=== PATIENT | male | born 1940 | race African-American/Black ===

== ENCOUNTER 2020-04-22 22:11 | Emergency (ER) | payer OTHER ==
[2020-04-22 22:42] LABS: Protime INR 1.05
[2020-04-22 23:02] LABS: ALT/SGPT 40 U/L (12-78); AST/SGOT 26 U/L (15-37); Albumin 3.5 g/dL (3.4-5.0); Alkaline Phosphatase 104 U/L (45-117); BUN Blood Urea Nitrogen 15 mg/dL (7-18); Bicarbonate 27 mmol/L (21-32); Bilirubin Direct < 0.1 mg/dL (0-0.2); Bilirubin Total 0.4 mg/dL (0.2-1.0); Glucose Level 122 mg/dL (74-106); Magnesium 2.4 mg/dL (1.8-2.4); NT PRO-BNP 240 pg/mL (<450); Potassium 3.5 mmol/L (3.5-5.1); Protein, Total 7.7 g/dL (6.4-8.2); Sodium Level 142 mmol/L (136-145); Troponin (Emerg Dept Use Only) 0.02 ng/mL (0.0-0.045)
[2020-04-22] MEDS ORDERED: NA CHLORIDE 0.9% 500 ML ONE (23:16)
[2020-04-22] MEDS ORDERED: HYDRALAZINE HCL 20 MG/ML VIAL ONE (23:16)
[2020-04-22 23:58] LABS: Absolute Lymphocytes (CBC) 1.4 K/uL (0.7-4.9); Basophils % 0.4 % (0-1.3); Hematocrit 45.7 % (39.6-49.0); Lymphocytes % 16.4 % (15.3-44.8); MPV 9.6 fL (7.6-11.3); RBC Red Blood Cell Count 5.51 M/uL (4.33-5.43)
[2020-04-23] MEDS ORDERED: lisinopriL 20 MG TAB ONE (00:04)
[2020-04-23 00:56] LABS: Urine Blood TRACE (NEG); Urine Glucose NEGATIVE (NEG); Urine Protein 2+ (NEG)
[2020-04-23 00:57] LABS: Urine Bacteria <20 /HPF (NONE SEEN)
[2020-04-23] MEDS ORDERED: METOPROLOL TAR 25 MG TAB ONE (01:13)
[2020-04-23] MEDS ORDERED: ASPIRIN 81 MG CHEWABLE TABLET ONE (01:13)
[2020-04-23] MEDS ORDERED: METOPROLOL TARTRATE 5 MG/5 ML INJ IV ONE (01:13)
--- NOTE | 2020-04-23 01:31 | ER ---
Nurse's Notes [facility] Name: Dimitrios Madera Age: 79 yrs Sex: Male : 1940 Arrival Date: 04/22/2020 Time: 22:19 Bed 8 Private MD: Diagnosis: Weakness-Right Arm and Right Leg;Hypertensive heart disease Presentation: 04/22 22:20 Chief complaint: EMS states: HE WAS WORKING OUTSIDE, HURT HIS FOOT WHEN HE STEPPED ON rv HIS TOOL. WENT INSIDE, FELL, NO HEAD TRAUMA, BLOOD PRESSURE IS ELEVATED. BGL IS NORMAL. Coronavirus screen: Client denies travel out of the [place] in the last 14 days. Ebola Screen: No symptoms or risks identified at this time. No acute neurological deficit is noted. The patients blood glucose was checked before arriving to the hospital and was found to be normal. Initial Sepsis Screen: Does the patient meet any 2 criteria? No. Patient's initial sepsis screen is negative. Does the patient have a suspected source of infection? No. Patient's initial sepsis screen is negative. Risk Assessment: Do you want to hurt yourself or someone else? Patient reports no desire to harm self or others. Onset of symptoms was April 22, 2020. 22:20 Method Of Arrival: EMS: [facility] 22:20 Acuity: TRIPP 3 rv Triage Assessment: 22:23 The onset of the patients symptoms was less than three hours ago. The onset of the rv patients symptoms was April 22, 2020 at 19:30. General: Appears comfortable, Behavior is calm, cooperative. Pain: Denies pain. EENT: No signs and/or symptoms were reported regarding the EENT system. Neuro: Level of Consciousness is awake, alert, obeys commands, Oriented to person, place, time, situation, Reports weakness. Cardiovascular: Patient's skin is warm and dry. Rhythm is sinus tachycardia. Respiratory: Airway is patent Respiratory effort is even, unlabored, Breath sounds are clear bilaterally. Derm: Skin is intact. Historical: - Allergies: 22:23 No Known Allergies; rv - Home Meds: 22:23 None [Active]; rv - PMHx: 22:23 None; rv - PSHx: 22:23 None; rv - Immunization history:: Adult Immunizations up to date. - Social history:: Smoking status: Patient denies any tobacco usage or history of. Screenin:25 Abuse screen: Denies threats or abuse. Denies injuries from another. Nutritional rv screening: No deficits noted. Tuberculosis screening: No symptoms or risk factors identified. VAN Screening: Arm Drift: Patient shows no arm weakness. Patient is VAN negative. Fall Risk Fall in past 12 months (25 points). No secondary diagnosis (0 pts). No IV (0 pts). Ambulatory Aid- None/Bed Rest/Nurse Assist (0 pts). Gait- Weak (10 pts.). Mental Status- Oriented to own ability (0 pts). Total Montelongo Fall Scale indicates No Risk (0-24 pts). Assessment: 22:45 Reassessment: PATIENT IS BACK FROM CT SCAN. rv 04/23 01:30 Reassessment: patient's blood pressure decreased after doses of blood pressure rv medications, assisted the patient on standing up on the bed, noted the right leg and right arm to be weak, alert and oriented, referred to Jass Martin, CT scan done immediately, Dr Rainey talked to the family and patient, family and patient consented on TPA. Neuro: Level of Consciousness is awake, alert, obeys commands, Oriented to person, place, time, situation. 03:30 Reassessment: while administering the TPA, patient's vital signs dropped, became rv hypotensive, and patient suddenly unresponsive, with pulse, complete right sided weakness, absence of movement noted, blood sugar checked-115, hooked to oxygen via nasal cannula at 2 lpm, Dr Rainey at bedside, suctioning done, noted patient's gag reflex is present, given bolus of NS thru IV, blood pressure started to increase, CT scan done and negative for bleeding. family updated on the plan of care, life flight at bedside. patient is stuporous upon transfer. Neuro: Level of Consciousness is stuporous, Paralysis in right arm(s) leg(s). Vital Signs: 04/22 22:20 BP 221 / 103; Pulse 111; Resp 14; Temp 98.3; Pulse Ox 97% on R/A; Weight 90.72 kg; rv Height 6 ft. 0 in. (182.88 cm); 23:51 BP 183 / 104; Pulse 115; Resp 19; Pulse Ox 99% ; rr5 04/23 00:15 BP 198 / 104; Pulse 111; Resp 14; Pulse Ox 100% on R/A; rv 01:00 BP 197 / 108; Pulse 109; Resp 16; Pulse Ox 100% on R/A; rv 01:26 BP 173 / 100; Pulse 92; Resp 14; Pulse Ox 99% on R/A; rv 02:20 BP 163 / 83; Pulse 91; Resp 15; Pulse Ox 100% on R/A; rv 02:30 BP 142 / 74; Pulse 89; Resp 17; Pulse Ox 100% on R/A; rv 02:45 BP 143 / 69; Pulse 84; Resp 15; Pulse Ox 100% on R/A; rv 03:00 BP 144 / 71; Pulse 96; Resp 15; Pulse Ox 99% on R/A; rv 03:15 BP 38 / 24; Pulse 56; Resp 25; Pulse Ox 100% ; rv 03:18 BP 71 / 48; Pulse 79; Resp 20; Pulse Ox 99% on 2 lpm NC; rv 03:26 BP 108 / 42; Pulse 89; Resp 19; Pulse Ox 100% on 2 lpm NC; rv 03:30 BP 121 / 74; Pulse 83; Resp 19; Pulse Ox 100% on 2 lpm NC; rv 04/22 22:20 Body Mass Index 27.12 (90.72 kg, 182.88 cm) rv NIH Stroke Scale Scores: 04/22 22:55 NIHSS Score: 0 cp 04/23 02:00 NIHSS Score: 4 rv 02:07 NIHSS Score: 5 cp ED Course: 04/22 22:19 Patient arrived in ED. cl3 22:20 Jeancarlos Mooney, ANGELICA is Primary Nurse. rv 22:22 Triage completed. rv 22:25 Arm band placed on right wrist. Patient placed in the treatment room, on a stretcher, rv Patient notified of wait time. 22:25 Maintain EMS IV. Dressing intact. Good blood return noted. Site clean \T\ dry. Gauge \T\ rv site: G20 LFA. 22:26 Patient has correct armband on for positive identification. Bed in low position. Call rv light in reach. Side rails up X 1. database coordinator on. Pulse ox on. NIBP on. 22:28 Jass Martin PA is PHCP. cp 22:28 Jass Rainey MD is Attending Physician. cp 22:44 XRAY Chest (1 view) In Process Unspecified. EDMS 22:48 CT Head Brain wo Cont In Process Unspecified. EDMS 04/23 02:06 initiated a transfer with Kenna Figueroa from [facility]. mw2 02:07 CT Head Brain wo Cont: right arm and right leg weakness In Process Unspecified. EDMS 02:16 administrative approval given by Kenna Figueroa/ patient has been accepted to [facility] mw2 bed [id number]/Dr. Branch has accepted the patient in transfer/ report to be called to [phone]. 02:20 Inserted saline lock: 18 gauge in right wrist, using aseptic technique. rr5 03:45 CT Head Brain wo Cont In Process Unspecified. EDMS 04:24 No provider procedures requiring assistance completed. IV is patent, with fluids rv infusing freely, Patient transferred, IV remains in place. Administered Medications: 04/22 23:11 Drug: NS 0.9% 250 ml Route: IV; Rate: calculated rate; Site: left forearm; rv 23:11 Drug: hydrALAZINE 10 mg Route: IV; Rate: calculated rate; Site: left forearm; rv 04/23 04:24 Follow up: Response: Blood pressure is lowered rv 04/22 23:51 Drug: Lisinopril 20 mg Route: PO; rr5 04/23 04:23 Follow up: Response: Blood pressure is lowered rv 04:24 Follow up: Response: No adverse reaction rv 00:28 Drug: NS 0.9% 250 ml Route: IV; Rate: bolus; Site: left forearm; rr5 04:23 Follow up: IV Status: Completed infusion; IV Intake: 250ml rv 01:03 Drug: Lopressor 5 mg Route: IVP; Site: left forearm; rv 04:23 Follow up: Response: Blood pressure is lowered rv 01:03 Drug: Metoprolol 25 mg Route: PO; rv 04:23 Follow up: Response: Blood pressure is lowered rv 01:03 Drug: Aspirin Chewable Tablet 81 mg Route: PO; rv 04:23 Follow up: Response: No adverse reaction rv 02:17 Drug: NS 0.9% 500 ml Route: IV; Rate: bolus; Site: left wrist; rv 04:22 Follow up: IV Status: Completed infusion rv 02:18 Drug: foLIC Acid 1 mg Route: IVPB; Site: left wrist; rv 04:22 Follow up: IV Status: Completed infusion rv 02:18 Drug: Pepcid 20 mg Route: IVP; Site: left wrist; rv 04:22 Follow up: Response: No adverse reaction rv 02:30 Drug: ACTIvase {Co-Signature: rr5 (Corky James RN).} Route: IV Thrombolytics; Rate: rv calculated rate; Infused Over: 60 mins; 04:22 Follow up: Response: No adverse reaction rv 03:10 Drug: Zofran (Ondansetron) 4 mg Route: IVP; Site: right antecubital; sg 04:22 Follow up: Response: No adverse reaction rv Intake: 04:23 IV: 250ml; Total: 250ml. rv Outcome: 01:30 Discharge ordered by . cp 02:30 ER care complete, transfer ordered by MD. cp 04:[address] [facility], Transfer form completed. rv X-rays sent w/ patient. 04:29 Condition: deteriorated 04:29 Instructed on the need for transfer. 04:29 Patient left the ED. rv NIH Stroke Scale - NIH Stroke Score Date: 04/22/2020 Time: 22:55 Total Score = 0 1a. Level of Consciousness (LOC) - 0(Alert) 1b. Level of Consciousness (LOC) (Year \T\ Age) - 0(Both) 1c. LOC Commands (Open \T\ Closes Eyes/Underwater Trapper) - 0(Both) 2. Best Gaze (Lateral Gaze Paresis) - 0(Normal) 3. Visual Field Loss - 0(No visual loss) 4. Facial Palsy - 0(Normal) 5a. Left Arm: Motor (10-second hold) - 0(No drift) 5b. Right Arm: Motor (10-second hold) - 0(No drift) 6a. Left Leg: Motor (5-second hold - always test supine) - 0(No drift) 6b. Right Leg: Motor (5-second hold - always test supine) - 0(No drift) 7. Limb Ataxia (finger/nose \T\ heel/pa - test with eyes open) - 0(Absent) 8. Sensory Loss (pinprick arms/legs/face) - 0(Normal) 9. Best Language: Aphasia (description/naming/reading) - 0(No aphasia) 10. Dysarthria (speech clarity - read or repeat words) - 0(Normal) 11. Extinction and Inattention (visual/tactile/auditory/spatial/personal) - 0(No abnormality) Initials: cp NIH Stroke Scale - NIH Stroke Score Date: 04/23/2020 Time: 02:00 Total Score = 4 1a. Level of Consciousness (LOC) - 0(Alert) 1b. Level of Consciousness (LOC) (Year \T\ Age) - 0(Both) 1c. LOC Commands (Open \T\ Closes Eyes/Underwater Trapper) - 0(Both) 2. Best Gaze (Lateral Gaze Paresis) - 0(Normal) 3. Visual Field Loss - 0(No visual loss) 4. Facial Palsy - 0(Normal) 5a. Left Arm: Motor (10-second hold) - 0(No drift) 5b. Right Arm: Motor (10-second hold) - 1(Drift) 6a. Left Leg: Motor (5-second hold - always test supine) - 0(No drift) 6b. Right Leg: Motor (5-second hold - always test supine) - 2(Drift, some effort against gravity) 7. Limb Ataxia (finger/nose \T\ heel/pa - test with eyes open) - 1(Present in one limb) 8. Sensory Loss (pinprick arms/legs/face) - 0(Normal) 9. Best Language: Aphasia (description/naming/reading) - 0(No aphasia) 10. Dysarthria (speech clarity - read or repeat words) - 0(Normal) 11. Extinction and Inattention (visual/tactile/auditory/spatial/personal) - 0(No abnormality) Initials: rv NIH Stroke Scale - NIH Stroke Score Date: 04/23/2020 Time: 02:07 Total Score = 5 1a. Level of Consciousness (LOC) - 0(Alert) 1b. Level of Consciousness (LOC) (Year \T\ Age) - 0(Both) 1c. LOC Commands (Open \T\ Closes Eyes/Underwater Trapper) - 0(Both) 2. Best Gaze (Lateral Gaze Paresis) - 0(Normal) 3. Visual Field Loss - 0(No visual loss) 4. Facial Palsy - 0(Normal) 5a. Left Arm: Motor (10-second hold) - 0(No drift) 5b. Right Arm: Motor (10-second hold) - 1(Drift) 6a. Left Leg: Motor (5-second hold - always test supine) - 0(No drift) 6b. Right Leg: Motor (5-second hold - always test supine) - 1(Drift) 7. Limb Ataxia (finger/nose \T\ heel/pa - test with eyes open) - 2(Present in two limbs) 8. Sensory Loss (pinprick arms/legs/face) - 0(Normal) 9. Best Language: Aphasia (description/naming/reading) - 0(No aphasia) 10. Dysarthria (speech clarity - read or repeat words) - 1(Mild to Moderate) 11. Extinction and Inattention (visual/tactile/auditory/spatial/personal) - 0(No abnormality) Initials: cp Signatures: Dispatcher [employer] EDCarlton Garcia RN RN sg Jass Martin PA PA cp Clyde Rose mw2 Jeancarlos Mooney RN RN Corky Hopson RN RN rr5 Musa Viera cl3 Corky James RN rr5 Corrections: (The following items were deleted from the chart) 03:50 02:20 Inserted saline lock: 20 gauge in right wrist, using aseptic technique. rr5 rr5 04:02 03:58 Reassessment: rv steven 04:22 01:00 Reassessment: Reassessment: rv rv
--- NOTE | 2020-04-23 01:31 | EDPHYS ---
Physician Documentation [facility] Name: Dimitrios Madera Age: 79 yrs Sex: Male : 1940 Arrival Date: 04/22/2020 Time: 22:19 Bed 8 Private MD: ED Physician Jass Rainey HPI: 04/22 22:45 This 79 yrs old Black Male presents to ER via EMS with complaints of Weakness. cp 22:45 The patient presents to the emergency department with weakness of the entire body, cp generalized weakness. 22:45 Onset: The symptoms/episode began/occurred today. Context: occurred at home, after cp fall, patient was unable to get up from ground. Patient's baseline: Neuro: alert and fully oriented, Motor: no deficits, Ambulation: walks without assistance, Speech: normal. Current symptoms: general weakness. 22:45 reports patient fell at home and was unable to get up from floor. cp Historical: - Allergies: 22:23 No Known Allergies; rv - Home Meds: 22:23 None [Active]; rv - PMHx: 22:23 None; rv - PSHx: 22:23 None; rv - Immunization history:: Adult Immunizations up to date. - Social history:: Smoking status: Patient denies any tobacco usage or history of. ROS: 22:50 Constitutional: Negative for body aches, chills, fever, poor PO intake. cp 22:50 Cardiovascular: Negative for chest pain, palpitations. cp 22:50 Respiratory: Negative for cough, shortness of breath, wheezing. 22:50 Abdomen/GI: Negative for abdominal pain, nausea, vomiting, and diarrhea. 22:50 Eyes: Negative for injury, pain, redness, and discharge. cp 22:50 ENT: Negative for ear pain, sore throat, difficulty swallowing, difficulty handling secretions. 22:50 Skin: Negative for rash. 22:50 Neuro: Positive for weakness, Negative for altered mental status, dizziness, headache, numbness, syncope. 22:50 All other systems are negative. Exam: 22:20 ECG was reviewed by the Attending Physician. cp 22:55 Head/Face: Normocephalic, atraumatic. cp 22:55 Constitutional: The patient appears in no acute distress, alert, awake, non-diaphoretic, non-toxic, well developed, well nourished. 22:55 Eyes: Periorbital structures: appear normal, Conjunctiva: normal, no exudate, no injection, Sclera: no appreciated abnormality, Lids and lashes: appear normal, bilaterally. 22:55 ENT: External ear(s): are unremarkable, Nose: is normal, Mouth: Lips: moist, Oral mucosa: moist, Posterior pharynx: Airway: no evidence of obstruction, patent. 22:55 Neck: ROM/movement: is normal, is supple, without pain, no range of motions limitations. 22:55 Chest/axilla: Inspection: normal, Palpation: is normal, no crepitus, no tenderness. 22:55 Cardiovascular: Rate: tachycardic, Rhythm: regular, Edema: is not appreciated, JVD: is not appreciated. 22:55 Respiratory: the patient does not display signs of respiratory distress, Respirations: normal, no use of accessory muscles, no retractions, labored breathing, is not present, Breath sounds: are clear throughout, no decreased breath sounds, no stridor, no wheezing. 22:55 Abdomen/GI: Inspection: abdomen appears normal, Bowel sounds: active, all quadrants, Palpation: abdomen is soft and non-tender, in all quadrants. 22:55 Back: pain, is absent, ROM is normal. 22:55 Skin: no rash present. 22:55 Neuro: Orientation: to person, place \T\ time. Mentation: is normal, Cerebellar function: Romberg testing is negative, Motor: moves all fours, strength is normal, Sensation: is normal. 04/23 00:47 ECG was reviewed by the Attending Physician. cp Vital Signs: 04/22 22:20 BP 221 / 103; Pulse 111; Resp 14; Temp 98.3; Pulse Ox 97% on R/A; Weight 90.72 kg; rv Height 6 ft. 0 in. (182.88 cm); 23:51 BP 183 / 104; Pulse 115; Resp 19; Pulse Ox 99% ; rr5 04/23 00:15 BP 198 / 104; Pulse 111; Resp 14; Pulse Ox 100% on R/A; rv 01:00 BP 197 / 108; Pulse 109; Resp 16; Pulse Ox 100% on R/A; rv 01:26 BP 173 / 100; Pulse 92; Resp 14; Pulse Ox 99% on R/A; rv 02:20 BP 163 / 83; Pulse 91; Resp 15; Pulse Ox 100% on R/A; rv 02:30 BP 142 / 74; Pulse 89; Resp 17; Pulse Ox 100% on R/A; rv 02:45 BP 143 / 69; Pulse 84; Resp 15; Pulse Ox 100% on R/A; rv 03:00 BP 144 / 71; Pulse 96; Resp 15; Pulse Ox 99% on R/A; rv 03:15 BP 38 / 24; Pulse 56; Resp 25; Pulse Ox 100% ; rv 03:18 BP 71 / 48; Pulse 79; Resp 20; Pulse Ox 99% on 2 lpm NC; rv 03:26 BP 108 / 42; Pulse 89; Resp 19; Pulse Ox 100% on 2 lpm NC; rv 03:30 BP 121 / 74; Pulse 83; Resp 19; Pulse Ox 100% on 2 lpm NC; rv 04/22 22:20 Body Mass Index 27.12 (90.72 kg, 182.88 cm) rv NIH Stroke Scale Scores: 04/22 22:55 NIHSS Score: 0 cp 04/23 02:00 NIHSS Score: 4 rv 02:07 NIHSS Score: 5 cp MDM: 04/22 22:33 Patient medically screened. [facility] 04/23 02:10 Physician consultation: Jas Shelton MD was called at 02:10, was contacted at 02:10, helio regarding consult, patient's condition, recommends administering tpa. 02:31 Data reviewed: vital signs, nurses notes, lab test result(s), EKG, radiologic studies, cp CT scan, plain films, I have discussed the patient's presentation/case with the attending Emergency Department Physician;. Counseling: I had a detailed discussion with the patient and/or guardian regarding: the historical points, exam findings, and any diagnostic results supporting the discharge/admit diagnosis, the presence of at least one elevated blood pressure reading (>120/80) during this emergency department visit, lab results, the need to transfer to another facility, for higher level of care. 04/22 22:26 Order name: Basic Metabolic Panel; Complete Time: 23:45 rv 04/22 23:46 Interpretation: Normal except: GLUC 122; CRE 1.31; GFR 64. cp 04/22 22:26 Order name: CBC with Diff; Complete Time: 00:14 rv 04/23 00:15 Interpretation: Normal except: RBC 5.51; MCH 26.7; ALFRED% 76.6. 04/22 22:26 Order name: LFT's; Complete Time: 23:45 04/22 23:46 Interpretation: Normal except: GLOB 4.2; A/G 0.8. 04/22 22:26 Order name: Magnesium; Complete Time: 23:45 rv 04/22 22:26 Order name: NT PRO-BNP; Complete Time: 23:45 04/22 22:26 Order name: PT-INR; Complete Time: 23:45 rv 04/22 22:26 Order name: Troponin (emerg Dept Use Only); Complete Time: 23:45 04/22 23:46 Interpretation: Reviewed. 04/22 22:26 Order name: XRAY Chest (1 view) 04/22 22:32 Order name: Glucose, Ancillary Testing; Complete Time: 22:35 ED[facility] 04/22 22:37 Order name: Urine Microscopic Only 04/22 22:37 Order name: CT Head Brain wo Cont 04/22 22:38 Order name: Urine Microscopic Only; Complete Time: 01:45 ED[facility] 04/22 23:52 Order name: Urine Dipstick--Ancillary (enter results); Complete Time: 01:45 04/23 03:38 Order name: Glucose, Ancillary Testing ED[facility] 04/22 22:26 Order name: EKG; Complete Time: 22:27 04/22 22:26 Order name: Cardiac monitoring; Complete Time: 22:26 04/23 01:47 Order name: CT Head Brain wo Cont: right arm and right leg weakness 04/23 03:20 Order name: CT Head Brain wo Cont rr5 04/22 22:26 Order name: EKG - Nurse/Tech; Complete Time: 22:27 04/22 22:26 Order name: IV Saline Lock; Complete Time: 22:27 04/22 22:26 Order name: Labs collected and sent; Complete Time: 22:27 04/22 22:26 Order name: O2 Per Protocol; Complete Time: 22:27 04/22 22:26 Order name: O2 Sat Monitoring; Complete Time: 22:27 04/22 22:37 Order name: Urine Dipstick-Ancillary (obtain specimen); Complete Time: 01:22 EC/28 22:20 Rate is 99 beats/min. Rhythm is regular. MA interval is normal. QRS interval is normal. cp QT interval is normal. Interpreted by me. Reviewed by me. 04/23 00:47 Rate is 110 beats/min. Rhythm is regular. MA interval is normal. QRS interval is cp normal. QT interval is normal. Interpreted by me. Reviewed by me. Administered Medications: 04/22 23:11 Drug: NS 0.9% 250 ml Route: IV; Rate: calculated rate; Site: left forearm; rv 23:11 Drug: hydrALAZINE 10 mg Route: IV; Rate: calculated rate; Site: left forearm; rv 04/23 04:24 Follow up: Response: Blood pressure is lowered rv 04/22 23:51 Drug: Lisinopril 20 mg Route: PO; rr5 04/23 04:23 Follow up: Response: Blood pressure is lowered rv 04:24 Follow up: Response: No adverse reaction rv 00:28 Drug: NS 0.9% 250 ml Route: IV; Rate: bolus; Site: left forearm; rr5 04:23 Follow up: IV Status: Completed infusion; IV Intake: 250ml rv 01:03 Drug: Lopressor 5 mg Route: IVP; Site: left forearm; rv 04:23 Follow up: Response: Blood pressure is lowered rv 01:03 Drug: Metoprolol 25 mg Route: PO; rv 04:23 Follow up: Response: Blood pressure is lowered rv 01:03 Drug: Aspirin Chewable Tablet 81 mg Route: PO; rv 04:23 Follow up: Response: No adverse reaction rv 02:17 Drug: NS 0.9% 500 ml Route: IV; Rate: bolus; Site: left wrist; rv 04:22 Follow up: IV Status: Completed infusion rv 02:18 Drug: foLIC Acid 1 mg Route: IVPB; Site: left wrist; rv 04:22 Follow up: IV Status: Completed infusion rv 02:18 Drug: Pepcid 20 mg Route: IVP; Site: left wrist; rv 04:22 Follow up: Response: No adverse reaction rv 02:30 Drug: ACTIvase {Co-Signature: rr5 (Corky James RN).} Route: IV Thrombolytics; Rate: rv calculated rate; Infused Over: 60 mins; 04:22 Follow up: Response: No adverse reaction rv 03:10 Drug: Zofran (Ondansetron) 4 mg Route: IVP; Site: right antecubital; sg 04:22 Follow up: Response: No adverse reaction rv Disposition: 07:24 Co-signature as Attending Physician, Jass Rainey MD I agree with the assessment and lora plan of care. Disposition: 04/23/20 02:30 Transfer ordered to [facility]. Diagnosis are Weakness - Right Arm and Right Leg, Hypertensive heart disease. - Reason for transfer: Higher level of care. - Accepting physician is DR Branch. - Condition is Stable. - Problem is new. - Symptoms are unchanged. NIH Stroke Scale - NIH Stroke Score Date: 04/22/2020 Time: 22:55 Total Score = 0 1a. Level of Consciousness (LOC) - 0(Alert) 1b. Level of Consciousness (LOC) (Year \T\ Age) - 0(Both) 1c. LOC Commands (Open \T\ Closes Eyes/Mine Car Dispatcher) - 0(Both) 2. Best Gaze (Lateral Gaze Paresis) - 0(Normal) 3. Visual Field Loss - 0(No visual loss) 4. Facial Palsy - 0(Normal) 5a. Left Arm: Motor (10-second hold) - 0(No drift) 5b. Right Arm: Motor (10-second hold) - 0(No drift) 6a. Left Leg: Motor (5-second hold - always test supine) - 0(No drift) 6b. Right Leg: Motor (5-second hold - always test supine) - 0(No drift) 7. Limb Ataxia (finger/nose \T\ heel/pa - test with eyes open) - 0(Absent) 8. Sensory Loss (pinprick arms/legs/face) - 0(Normal) 9. Best Language: Aphasia (description/naming/reading) - 0(No aphasia) 10. Dysarthria (speech clarity - read or repeat words) - 0(Normal) 11. Extinction and Inattention (visual/tactile/auditory/spatial/personal) - 0(No abnormality) Initials: cp NIH Stroke Scale - NIH Stroke Score Date: 04/23/2020 Time: 02:00 Total Score = 4 1a. Level of Consciousness (LOC) - 0(Alert) 1b. Level of Consciousness (LOC) (Year \T\ Age) - 0(Both) 1c. LOC Commands (Open \T\ Closes Eyes/Mine Car Dispatcher) - 0(Both) 2. Best Gaze (Lateral Gaze Paresis) - 0(Normal) 3. Visual Field Loss - 0(No visual loss) 4. Facial Palsy - 0(Normal) 5a. Left Arm: Motor (10-second hold) - 0(No drift) 5b. Right Arm: Motor (10-second hold) - 1(Drift) 6a. Left Leg: Motor (5-second hold - always test supine) - 0(No drift) 6b. Right Leg: Motor (5-second hold - always test supine) - 2(Drift, some effort against gravity) 7. Limb Ataxia (finger/nose \T\ heel/pa - test with eyes open) - 1(Present in one limb) 8. Sensory Loss (pinprick arms/legs/face) - 0(Normal) 9. Best Language: Aphasia (description/naming/reading) - 0(No aphasia) 10. Dysarthria (speech clarity - read or repeat words) - 0(Normal) 11. Extinction and Inattention (visual/tactile/auditory/spatial/personal) - 0(No abnormality) Initials: rv NIH Stroke Scale - NIH Stroke Score Date: 04/23/2020 Time: 02:07 Total Score = 5 1a. Level of Consciousness (LOC) - 0(Alert) 1b. Level of Consciousness (LOC) (Year \T\ Age) - 0(Both) 1c. LOC Commands (Open \T\ Closes Eyes/Mine Car Dispatcher) - 0(Both) 2. Best Gaze (Lateral Gaze Paresis) - 0(Normal) 3. Visual Field Loss - 0(No visual loss) 4. Facial Palsy - 0(Normal) 5a. Left Arm: Motor (10-second hold) - 0(No drift) 5b. Right Arm: Motor (10-second hold) - 1(Drift) 6a. Left Leg: Motor (5-second hold - always test supine) - 0(No drift) 6b. Right Leg: Motor (5-second hold - always test supine) - 1(Drift) 7. Limb Ataxia (finger/nose \T\ heel/pa - test with eyes open) - 2(Present in two limbs) 8. Sensory Loss (pinprick arms/legs/face) - 0(Normal) 9. Best Language: Aphasia (description/naming/reading) - 0(No aphasia) 10. Dysarthria (speech clarity - read or repeat words) - 1(Mild to Moderate) 11. Extinction and Inattention (visual/tactile/auditory/spatial/personal) - 0(No abnormality) Initials: cp Signatures: Dispatcher [employer] EDMS Carlton Flores RN RN sg Anderson, Corey, MD MD cha Page, Corey, Jeancarlos Scott cp, RN RN rv Roque, Raymond, RN RN rr5 Corky James RN rr5 Corrections: (The following items were deleted from the chart) 00:17 04/22 22:30 This 79 yrs old Black Male presents to ER via EMS with complaints cp of Weakness. cp 04/23 02:01 01:30 04/23/2020 01:30 Discharged to Home. Impression: Hypertensive heart cp disease. Condition is Stable. Discharge Instructions: Hypertension, Managing Your Hypertension. Prescriptions for Metoprolol Tartrate 25 mg Oral Tablet - take 1 tablet by ORAL route 2 times per day with a meal; 60 tablet, Lisinopril 20 mg Oral Tablet - take 1 tablet by ORAL route once daily; 30 tablet. and Forms are Medication Reconciliation Form, Thank You Letter, Antibiotic Education, Prescription Opioid Use. Follow up: Private Physician; When: 2 - 3 days; Reason: Recheck today's complaints. Problem is new. Symptoms have improved. cp 04/22 22:22 Constitutional: The patient appears in no acute distress, alert, cp awake, non-diaphoretic, non-toxic, well developed, well nourished, cp 04/23 02:04/22 22:22 Head/Face: Normocephalic, atraumatic. cp cp 04/23 02:04/22 22:22 Eyes: Periorbital structures: appear normal, Conjunctiva: normal, cp no exudate, no injection, Sclera: no appreciated abnormality, Lids and lashes: appear normal, bilaterally, cp 04/23 02:04/22 22:22 ENT: External ear(s): are unremarkable, Nose: is normal, Mouth: cp Lips: moist, Oral mucosa: moist, Posterior pharynx: Airway: no evidence of obstruction, patent, cp 04/23 02:04/22 22:22 Neck: ROM/movement: is normal, is supple, without pain, no range of cp motions limitations, cp 04/23 02:04/22 22:22 Chest/axilla: Inspection: normal, Palpation: is normal, no cp crepitus, no tenderness, cp 04/23 02:04/22 22:22 Cardiovascular: Rate: tachycardic, Rhythm: regular, Edema: is not cp appreciated, JVD: is not appreciated, cp 04/23 02:04/22 22:22 Respiratory: the patient does not display signs of respiratory cp distress, Respirations: normal, no use of accessory muscles, no retractions, labored breathing, is not present, Breath sounds: are clear throughout, no decreased breath sounds, no stridor, no wheezing, cp 04/23 02:04/22 22:22 Abdomen/GI: Inspection: abdomen appears normal, Bowel sounds: cp active, all quadrants, Palpation: abdomen is soft and non-tender, in all quadrants, cp 04/23 02:04/22 22:22 Back: pain, is absent, ROM is normal, cp cp 04/23 02:04/22 22:22 Skin: no rash present. cp cp 04/23 02:04/22 22:22 Neuro: Orientation: to person, place \T\ time. Mentation: is normal, cp Cerebellar function: Romberg testing is negative, Motor: moves all fours, strength is normal, Sensation: is normal, cp 04/23 04:29 02:30 04/23/2020 02:30 Transfer ordered to [facility]. Diagnosis is Weakness - Right Arm and Right Leg; Hypertensive heart disease. Reason for transfer: Higher level of care. Accepting physician is DR Branch. Condition is Stable. Problem is new. Symptoms are unchanged. cp
[2020-04-23] MEDS ORDERED: NA CHLORIDE 0.9% 500 ML ONE (02:26)
[2020-04-23] MEDS ORDERED: FOLIC ACID 5 MG/ML VIAL ONE (02:27)
[2020-04-23] MEDS ORDERED: FAMOTIDINE 20 MG/2 ML VIAL IV ONE (02:27)
[2020-04-23] MEDS ORDERED: ALTEPLASE 100 ML IV ONE (02:40)
[2020-04-23] MEDS ORDERED: NA CHLORIDE 0.9% 100 ML ONE (02:44)
[2020-04-23] MEDS ORDERED: ONDANSETRON 4 MG/2 ML VIAL ONE (03:29)
[2020-04-23] MEDS ORDERED: NA CHLORIDE 0.9% 1,000 ML ONE ×2 (03:35→03:42)
[2020-04-23] MEDS ORDERED: RSI MEDICATION KIT IV ONE (03:53)
[2020-04-23] MEDS ORDERED: LIDOCAINE 2% MPF 5 ML VIAL ONE (03:54)
[2020-04-23 04:35] VITALS: TEMP 98.3
[2020-04-23 04:48] VITALS: O2SAT 100
[2020-04-23 04:49] VITALS: BP 121/74
--- NOTE | 2020-04-23 08:44 | RAD REPORT ---
EXAM DESCRIPTION: RAD - Chest Single View - 04/22/2020 10:43 pm CLINICAL HISTORY: COUGH COMPARISON: None TECHNIQUE: AP portable chest image was obtained 04/22/2020 10:43 pm . FINDINGS: Lungs are clear. Heart and vasculature are normal. No measurable pleural effusion and no p neumothorax. No acute bony abnormality seen. No acute aortic findings suspected. IMPRESSION: No acute cardiopulmonary process.
--- NOTE | 2020-04-23 11:58 | RAD REPORT ---
EXAM DESCRIPTION: CT - Head Brain Wo Cont - 04/23/2020 7:06 am CLINICAL HISTORY: 79 years Male elevated blood pressure COMPARISON: None TECHNIQUE: Images were obtained in axial, sagittal, and coronal planes. This exam was performed according to our departmental dose-optimization program which includes use of Automated Exposure Control, adjustment of the mA and/or kV according to patient size and/or use o f iterative reconstruction technique. FINDINGS: Ventricular system is age-appropriate in size. Marked prominence of the cortical sulci. No abnormal areas of increased attenuation seen. No extra-axial fluid collections noted. No evidence for skull fracture. Symmetric aeration of mastoid air cells bilaterally. Unremarkable par anasal sinuses. IMPRESSION: No acute intracranial abnormality. No evidence for hemorrhage, mass lesion, or large acu te infarction. Electronically signed by: Gita Clark MD 04/22/2020 11:13 PM ELECTRIC ENGINE MECHANIC Due to temporary technical issues with the PACS/Fluency reporting system, reports are being signed by the in house radiologist without review as a courtesy to ensure prompt reporting. The interpreting r adiologist is fully responsible for the content of the report.
--- NOTE | 2020-04-23 12:04 | RAD REPORT ---
EXAM DESCRIPTION: CT - Head Brain Wo Cont - 04/23/2020 7:05 am ADDENDUM #1 THIS REPORT CONTAINS FINDINGS THAT MAY BE CRITICAL TO PATIENT CARE: The findings were verbally discussed via telephone conference with Dr. Jass Rainey by Dr. Reina Vásquez on 1 06/24/2019 2:32 AM ASSISTANT HVAC MECHANIC .The results were acknowledged and understood. Electronically signed by: Jazzy Vásquez MD 04/23/2020 2:32 AM ASSISTANT HVAC MECHANIC End of Addendum EXAM DESCRIPTION: CT Head Without Intravenous Contrast CLINICAL HISTORY: The patient is 79 years old and is Male; WEAKNESS TECHNIQUE: Axial computed tomography images of the head/brain without intravenous contrast. Sagitt al and coronal reformatted images were created and reviewed. This CT exam was performed using one o r more of the following dose reduction techniques: automated exposure control, adjustment of the mA and/or kV according to patient size, and/or use of iterative reconstruction technique. COMPARISON: CT of the head 04/22/2020 FINDINGS: BRAIN: No intracranial hemorrhage, mass effect, or midline shift is seen. There are no e xtra-axial fluid collections. There is diffuse cerebral atrophy present, consistent with this patient 's age. There is patchy hypoattenuation of the deep white matter which is non-specific, but most li claudia owing to chronic small vessel ischemic change in a patient of this age group. VENTRICLES: Unremarkable. No ventriculomegaly. BONES/JOINTS: No acute fracture. SOFT TISSUES: Unremarkable. SINUSES: Unremarkable as visualized. No acute sinusitis. MASTOID AIR CELLS: Unremarkable as visualized. No mastoid effusion. ORBITS: Unremarkable as visualized. IMPRESSION: Age-related atrophy and chronic white matter ischemic changes, with no evidence of an ac [place] intracranial abnormality. Electronically signed by: Jazzy Vásquez MD 04/23/2020 2:20 AM ASSISTANT HVAC MECHANIC Due to temporary technical issues with the PACS/Fluency reporting system, reports are being signed by the in house radiologist without review as a courtesy to ensure prompt reporting. The interpreting r adiologist is fully responsible for the content of the report.
--- NOTE | 2020-04-23 12:05 | RAD REPORT ---
EXAM DESCRIPTION: CT - Head Brain Wo Cont - 04/23/2020 7:04 am ADDENDUM #1 THIS REPORT CONTAINS FINDINGS THAT MAY BE CRITICAL TO PATIENT CARE: The findings were verbally discu ssed via telephone conference with Jass Rainey 4:20 AM central time April 23, 2020. The results were acknowledged and understood. Patient is post TPA. Electronically signed by: Awa Dailey MD 04/23/2020 4:25 AM PACKAGER HAND End of Addendum EXAM DESCRIPTION: CT Head Without Intravenous Contrast CLINICAL HISTORY: The patient is 79 years old and is Male; DECLINING STATE TECHNIQUE: Axial computed tomography images of the head/brain without intravenous contrast. Sagitt al and coronal reformatted images were created and reviewed. This CT exam was performed using one o r more of the following dose reduction techniques: automated exposure control, adjustment of the mA and/or kV according to patient size, and/or use of iterative reconstruction technique. COMPARISON: CT head April 23, 2020 1:49 AM. FINDINGS: Brain: Mild age related periventricular white matter microangiopathic changes. No hemorrhage. Ventricles: Unremarkable. No ventriculomegaly. Bones/joints: Unremarkable. No acute skull fracture. Soft tissues: Unremarkable. Sinuses: Unremarkable as visualized. No acute sinusitis. Mastoid air cells: No significant mastoid fluid. IMPRESSION: 1. No acute intracranial findings. No hemorrhage. 2. Mild age related periventricular white matter microangiopathic changes. Electronically signed by: Awa Dailey MD 04/23/2020 4:12 AM PACKAGER HAND Due to temporary technical issues with the PACS/Fluency reporting system, reports are being signed by the in house radiologist without review as a courtesy to ensure prompt reporting. The interpreting r adiologist is fully responsible for the content of the report.
--- NOTE | 2020-04-23 16:06 | EKG ---
Test Date: 2020-04-23 Test Time: 00:41:59 Transmitter Chief: RR MEASUREMENT RESULTS: Intervals: Rate: 110 CO: 186 QRSD: 76 QT: 352 QTc: 476 [place]: P: 82 CO: 186 QRS: 17 T: 86 INTERPRETIVE STATEMENTS: Sinus tachycardia Nonspecific T wave abnormality Abnormal ECG Compared to ECG 04/22/2020 22:16:51 Sinus rhythm no longer present Sinus arrhythmia no longer present T-wave abnormality still present Electronically Signed On 04-23-20 16:05:22 DERMATOLOGY SALES REPRESENTATIVE by Nader Rust
--- NOTE | 2020-04-23 16:07 | EKG ---
Test Date: 2020-04-22 Test Time: 22:16:51 Gum Scoring Machine Operator: RR MEASUREMENT RESULTS: Intervals: Rate: 99 ME: 174 QRSD: 74 QT: 344 QTc: 441 [place]: P: 84 ME: 174 QRS: 38 T: 90 INTERPRETIVE STATEMENTS: Sinus rhythm with marked sinus arrhythmia Nonspecific T wave abnormality Abnormal ECG Compared to ECG 11/24/2001 09:46:00 T-wave abnormality now present Atrial premature complex(es) no longer present Electronically Signed On 04-23-20 16:05:25 REGIONAL ADMINISTRATIVE ASSISTANT by Nader Rust
== END 2020-04-23 04:29 | disposition short-term general hospital (02) ==
LOC: ER 22:11
DX: I11.9 Hypertensive heart disease without heart failure (principal); W19.XXXA Unspecified fall, initial encounter; Y93.9 Activity, unspecified; Y92.009 Unspecified place in unspecified non-institutional (private) residence as the place of occurrence of the external cause
CPT/HCPCS: 92977; 93005 ×2; 85025; 80048; 36415; 83735; 85610; 82947 ×2; 80076; 84484; 83880; 70450 ×3; 71045; 99285; J0360; J2997; J7040 ×2; J7030 ×2; J2405; 81003; 81015